=== PATIENT | female | born 1990 | race Caucasian/White ===

== ENCOUNTER 2016-10-12 23:13 | Emergency (ER) | payer OTHER ==
[~2016-10-12] VITALS: Ht 170.2 cm; Wt 85.0 kg
[~2016-10-12 23:13] MED LIST: ADVAI100I PO; ALBU0.086 INH; ALBU1AER INH; ALBU2.5I INH; ALBU8I INH; FLOV220A IN; PRED20 PO
[2016-10-12 23:14] VITALS: BP 118/68; PULSE 92; RESP 20; TEMP 97.6; O2SAT 93
[2016-10-12] MEDS ORDERED: methylPREDNISolone SOD SUCC 125 MG/2 ML VIAL IVP ONE (23:30)
[2016-10-12] MEDS ORDERED: SODIUM CHLORIDE 0.9% FLUSH 5 ML FLUSH IVF PRN (23:30)
--- NOTE | 2016-10-12 23:30 | PD ---
HPI Chief Complaint: Respiratory Symptoms Time Seen by Provider: 23:20 Travel History International Travel<30 days: No Contact w/Intl Traveler<30days: No Traveled to known affect area: No History of Present Illness HPI 26-year-old female presents for evaluation of shortness of breath and wheezing. Symptoms have been ongoing for the past few days. She has a history of asthma , uses albuterol nebulizer and inhaler at home but has had worsening wheezing over the past few days which prompted evaluation. She endorses a cough which is primarily dry. Denies chest pain, abdominal pain, sore throat, fevers or chills, calf swelling, recent travel, rash. She reports that she recently quit smoking. She has no other complaints at this time. [facility] Past Medical History Asthma: Yes Diminished Hearing: No Musculoskeletal: Yes (Chronic Back Pain) Respiratory: Yes (ASTHMA) Immunizations Current: Yes Social History Alcohol Use: Yes (Weekly) Tobacco Use: No (6 Cigarettes per day/None past 2 days) Substance Use: No Allergies-Medications (Allergen,Severity, Reaction): Coded Allergies: Nut Tree (Verified Allergy, Unknown, Anaphylaxis, 10/12/16) Reported Meds & Prescriptions Reported Meds & Active Scripts Active Prednisone 20 Mg Tab 20 Mg PO BID 5 Days Albuterol Neb (Albuterol Sulfate) 2.5 Mg/3 Ml Neb 2.5 Mg NEB Q4HR NEB PRN Proair Hfa 8.5 GM Inh (Albuterol Sulfate) 90 Mcg/Act Aer 2 Puff INH Q4-6H PRN 108 mcg/actuation Flovent Hfa 12 GM Inh (Fluticasone Propionate) 220 Mcg/Act Inh 2 Puff INH BID Use daily at the same time. Flovent [id number] 220 Mcg Aer 220 Mcg IN BID 30 Days Deltasone 20 Mg Tab (Prednisone) 20 Mg Tab 60 Mg PO DAILY 7 Days Proventil Ud 0.083% (2.5 Mg/3 Ml) (Albuterol Sulfate) 2.5 Mg/3 Ml Inha 2.5 Mg INH Q4 Ventolin Hfa (Albuterol Sulfate) 8 Gm Aero 2 Puff INH Q6 * SHAKE WELL BEFORE USE * Proair Hfa (Albuterol Sulfate) 8.5 Gm Aero 2 Puff INH Q4 PRN * SHAKE WELL BEFORE USE * Advair Dis14 Inhalat Fluticasone/Salmeterol 100/50 Inh 1 Puff PO Q12HR Ventolin Hfa (Albuterol Sulfate) 8 Gm Aero 2 Puff INH Q6 * SHAKE WELL BEFORE USE * Reported Resp: Albuterol 2.5 Mg/3 Ml Neb (Albuterol Sulfate) 2.5 Mg/3 Ml Nebu 2.5 Mg INH Q6H PRN Review of Systems Except as stated in HPI: all other systems reviewed are Neg Physical Exam Narrative GENERAL: Well-developed well-nourished female in no acute distress SKIN: Warm and dry. HEAD: Atraumatic. Normocephalic. EYES: Pupils equal and round. No scleral icterus. No injection or drainage. ENT: No nasal bleeding or discharge. Mucous membranes pink and moist. NECK: Trachea midline. No JVD. CARDIOVASCULAR: Regular rate and rhythm. No murmur appreciated. RESPIRATORY: No accessory muscle use. Diffuse wheezing bilaterally. Mild tachypnea. Able to speak in complete and clear sentences. GASTROINTESTINAL: Abdomen soft, non-tender, nondistended. Hepatic and splenic margins not palpable. MUSCULOSKELETAL: No obvious deformities. No clubbing. No cyanosis. No edema. Data Data Last Documented VS Vital Signs Date Time Temp Pulse Resp B/P Pulse Ox O2 Delivery O2 Flow Rate FiO2 10/13/16 00:19 96 Nasal Cannula 2 10/12/16 23:14 97.6 92 20 118/68 Orders Chest, Single Ap (10/12/16 23:25) Ecg Monitoring (10/12/16 23:25) Iv Access Insert/Monitor (10/12/16 23:25) Oximetry (10/12/16 23:25) Oxygen Administration (10/12/16 23:25) Methylprednisolone So Succ Inj (Solumedr (10/12/16 23:30) Albuterol-Ipratropium Neb (Duoneb Neb) (10/12/16 23:30) Sodium Chloride 0.9% Flush (Ns Flush) (10/12/16 23:30) MDM Medical Decision Making Medical Screen Exam Complete: Yes Emergency Medical Condition: Yes Medical Record Reviewed: Yes Differential Diagnosis Asthma exacerbation, reactive airway disease, bronchospasm, pneumonia, influenza , spontaneous pneumothorax, pulmonary embolism Narrative Course 26-year-old female with history of asthma presents with wheezing, shortness of breath and dry cough for 2 days. On examination initially she has mildly tachypneic and has diffuse wheezing. The patient was given 3 rounds of DuoNeb therapy, IV Solu-Medrol. Patient was placed on pulse oximetry. Chest x-ray was obtained and was unremarkable. The patient was observed here in the emergency department for 2 hours and she reported significant improvement in symptoms. Upon reexamination her wheezing is decreased. Currently the patient only uses albuterol nebulizer and inhaler as needed for asthma control. She has run out of the nebulizer and is about to run out of the inhaler so she will be given refills of both these medications. In the past the patient has been prescribed Flovent however she was unable to afford it because it caused almost $300 despite having insurance. The renal case manager was able to locate a coupon for Flovent and the patient is being given a refill of Flovent as well as the coupon. She will also be discharged with a five-day course of prednisone. She understands to return here for any new or worsening symptoms. She is stable for discharge. Diagnosis Primary Impression: Asthma exacerbation Additional Instructions: Take the prednisone as prescribed. Use albuterol nebulizer/inhaler as needed for wheezing. Begin taking Flovent once the prednisone course is completed. Continue to avoid tobacco products. Follow-up closely with primary care physician to help continue to manage your asthma. Return for any new or worsening symptoms. Med/Other Pt SpecificInfo: Prescription(s) given Scripts Prednisone 20 Mg Tab20 Mg PO BID 5 Days Ref 0 Prov:Woodrow Mendoza MD 10/13/16 Albuterol Neb 2.5 Mg/3 Ml Neb2.5 Mg NEB Q4HR NEB PRN (SHORTNESS OF BREATH) #60 NEBULE Ref 0 Prov:Woodrow Mendoza MD 10/13/16 Albuterol 8.5 GM Inh (Proair Hfa 8.5 GM Inh)90 Mcg/Act Aer2 Puff INH Q4-6H PRN ( SHORTNESS OF BREATH) #1 INHALER Ref 0 108 mcg/actuation Prov:Woodrow Mendoza MD 10/13/16 Fluticasone 12 GM Inh (Flovent Hfa 12 GM Inh)220 Mcg/Act Inh2 Puff INH BID #1 INHALER Ref 1 Use daily at the same time. Prov:Woodrow Mendoza MD 10/13/16 Disposition: 01 DISCHARGE HOME Condition: Stable Eddie Liz Oct 12, 2016 23:30
[2016-10-12] MEDS: RESP: ALBUTEROL 2.5 MG/IPRATROPIUM 0.5 MG NEB (SCH) INH (23:37)
[2016-10-12 23:51] VITALS: O2SAT 93
--- NOTE | 2016-10-13 00:12 | RADRPT ---
EXAM DATE/TIME: 10/13/2016 00:05 [facility] COMPARISON: CHEST SINGLE AP, April 09, 2016, 12:57. INDICATIONS : Shortness of breath. MEDICAL HISTORY : Asthma SURGICAL HISTORY : None. ENCOUNTER: Initial ACUITY: 1 day PAIN SCORE: 0/10 LOCATION: Bilateral chest FINDINGS: A single view of the chest demonstrates the lungs to be symmetrically aerated without evidence of mas s, infiltrate or effusion. The cardiomediastinal contours are unremarkable. Osseous structures are intact. CONCLUSION: No acute disease. No significant change has occurred. Christophe Mcgarry MD on October 13, 2016 at 0:10 Board Certified Radiologist. This report was verified electronically.
[2016-10-13 00:19] VITALS: O2SAT 98
[2016-10-13] MEDS ORDERED: PRED20 PO ×2 (00:46→00:48)
[2016-10-13] MEDS ORDERED: ALBU0.08 NEB (00:46)
[2016-10-13] MEDS ORDERED: ALBUAER3 INH (00:46)
[2016-10-13] MEDS ORDERED: FLUTI220I INH (00:46)
== END 2016-10-13 01:53 | disposition home or self-care (01) ==
LOC: NEPB 23:13
DX: J45.901 Unspecified asthma with (acute) exacerbation (principal); R06.82 Tachypnea, not elsewhere classified; Z87.891 Personal history of nicotine dependence
CPT/HCPCS: 71010; 94640; 94664; 96374; 99283; J2930

== ENCOUNTER 2016-11-15 10:12 | Emergency (ER) | payer OTHER ==
[~2016-11-15] VITALS: Ht 165.1 cm; Wt 112.0 kg
[~2016-11-15 10:12] MED LIST changes: +ALBU0.08 NEB; +ALBUAER3 INH; +FLUTI220I INH
[2016-11-15 10:28] VITALS: BP 124/78; PULSE 104; RESP 28; TEMP 99.1; O2SAT 93
[2016-11-15] MEDS ORDERED: methylPREDNISolone SOD SUCC 125 MG/2 ML VIAL IM ONE (10:45)
--- NOTE | 2016-11-15 10:45 | PD ---
HPI Chief Complaint: Respiratory Symptoms Time Seen by Provider: 10:37 Travel History International Travel<30 days: No Contact w/Intl Traveler<30days: No Traveled to known affect area: No History of Present Illness HPI The patient was seen and examined in the presence of the nurse. This patient complains of shortness of breath. Duration is 12 hours. Severity is moderate. She is wheezing. She has history of asthma and tried a nebulizer but didn't help her much. She's also had some runny nose and congestion lately. Denies fever or chest pain. No alleviating factors PFSH Past Medical History Asthma: Yes Diminished Hearing: No Musculoskeletal: Yes (Chronic Back Pain) Respiratory: Yes (ASTHMA) Immunizations Current: Yes ?: Not Past Surgical History Tonsillectomy: Yes Social History Alcohol Use: Yes (Weekly) Tobacco Use: No (6 Cigarettes per day/None past 2 days) Substance Use: No Allergies-Medications (Allergen,Severity, Reaction): Coded Allergies: Nut Tree (Verified Allergy, Unknown, Anaphylaxis, 11/15/16) Reported Meds & Prescriptions Reported Meds & Active Scripts Active Albuterol Neb (Albuterol Sulfate) 2.5 Mg/3 Ml Neb 2.5 Mg NEB Q4HR NEB PRN Proair Hfa 8.5 GM Inh (Albuterol Sulfate) 90 Mcg/Act Aer 2 Puff INH Q4-6H PRN 108 mcg/actuation Review of Systems General / Constitutional: No: Fever Eyes: No: Visual changes HENT: Positive: Congestion, No: Headaches Cardiovascular: No: Chest Pain or Discomfort Respiratory: Positive: Cough, Shortness of Breath, Wheezing Gastrointestinal: No: Abdominal Pain Genitourinary: No: Dysuria Musculoskeletal: No: Pain Skin: No Rash Neurologic: No: Weakness Psychiatric: No: Depression Endocrine: No: Polydipsia Hematologic/Lymphatic: No: Easy Bruising Physical Exam Narrative GENERAL: Well-nourished, well-developed patient who is short of breath SKIN: Warm and dry. HEAD: Atraumatic. Normocephalic. EYES: Pupils equal and round. No scleral icterus. No injection or drainage. ENT: No nasal bleeding or discharge. Mucous membranes pink and moist. NECK: Trachea midline. No JVD. CARDIOVASCULAR: Regular rate and rhythm. No murmur appreciated. RESPIRATORY: Positive accessory muscle use. Diffuse expiratory wheezing. Breath sounds equal bilaterally. GASTROINTESTINAL: Abdomen soft, non-tender, nondistended. Hepatic and splenic margins not palpable. MUSCULOSKELETAL: No obvious deformities. No clubbing. No cyanosis. No edema. NEUROLOGICAL: Awake and alert. No obvious cranial nerve deficits. Motor grossly within normal limits. Normal speech. PSYCHIATRIC: Appropriate mood and affect; insight and judgment normal. Data Data Last Documented VS Vital Signs Date Time Temp Pulse Resp B/P Pulse Ox O2 Delivery O2 Flow Rate FiO2 11/15/16 11:15 95 Room Air 11/15/16 11:14 98.8 124 18 119/60 Orders Oximetry (11/15/16 10:41) Oxygen Administration (11/15/16 10:41) Methylprednisolone So Succ Inj (Solumedr (11/15/16 10:45) Albuterol Neb (Albuterol Neb) (11/15/16 10:45) Albuterol-Ipratropium Neb (Duoneb Neb) (11/15/16 12:00) MDM Medical Decision Making Medical Screen Exam Complete: Yes Emergency Medical Condition: Yes Medical Record Reviewed: Yes Differential Diagnosis Asthma, COPD, pneumonia Narrative Course I have reviewed the patient's electronic medical record. Patient is a frequent visitor here for asthma Gave her a series of 3 nebulizer treatments I gave her Solu-Medrol injection On repeat evaluation, she is much improved but still wheezing a bit I gave her a fourth DuoNeb On repeat she is no longer wheezing at all and feels better Now stable for outpatient follow-up Prescribed her 5 days of prednisone She has nebulizer to use as needed Diagnosis Primary Impression: Asthma exacerbation Additional Instructions: The patient was advised to follow up with their physician and return if they worsen. Med/Other Pt SpecificInfo: Prescription(s) given Scripts Prednisone 20 Mg Tab20 Mg PO BID 5 Days Ref 0 Prov:Joni Zimmerman MD 11/15/16 Disposition: 01 DISCHARGE HOME Condition: Stable Joni Zimmerman MD Nov 15, 2016 10:45
[2016-11-15] MEDS: RESP: ALBUTEROL 2.5 MG/3 ML NEB (SCH) INH (10:47)
[2016-11-15 11:14] VITALS: BP 119/60; PULSE 124; RESP 18; TEMP 98.8; O2SAT 95
[2016-11-15 11:15] VITALS: O2SAT 95
[2016-11-15] MEDS ORDERED: RESP: ALBUTEROL 2.5 MG/IPRATROPIUM 0.5 MG NEB (SCH) NEB ONE (12:00)
[2016-11-15] MEDS ORDERED: PRED20 PO (13:11)
[2016-11-15] MEDS ORDERED: VENTAER INH (13:14)
== END 2016-11-15 13:21 | disposition home or self-care (01) ==
LOC: PHED 10:12
DX: J45.901 Unspecified asthma with (acute) exacerbation (principal); F17.210 Nicotine dependence, cigarettes, uncomplicated
CPT/HCPCS: 94640; 94664; 96372; 99284; J2930; J7613